=== PATIENT | male | born 1960 | race Caucasian/White ===

== ENCOUNTER 2020-07-28 09:58 | Day surgery (SDC) | payer BC ==
--- NOTE | 2020-07-27 09:22 | PCM.PREANE ---
Preanesthetic Assessment - Procedure Proposed Procedure: Right video arthroscopy with partial medial menisectomy - Anesthesia/Transfusion/Family Hx Anesthesia History: Prior Anesthesia Without Reaction Family History of Anesthesia Reaction: No Transfusion History: No Prior Transfusion(s) Intubation History: Unknown - Review of Systems General: No Symptoms Pulmonary: No Symptoms (ETOH: rarely) Cardiovascular: No Symptoms Gastrointestinal: No Symptoms Neurological: No Symptoms (spinal cerebellar ataxia/vertigo), Gait Disturbance Other: Reports: None - Physical Assessment NPO Status Date: 07/27/20 NPO Status Time: 20:30 Vital Signs: HR:81 Sat:98% Temp:97.3 Resp:16 B/P:139/76 Height: 1.8 m Weight: 76 kg ASA Class: 2 Mental Status: Alert & Oriented x3 Airway Class: Mallampati = 2 Dentition: Reports: Normal Dentition, Caries Thyro-Mental Finger Breadths: 3 Mouth Opening Finger Breadths: 3 ROM/Head Extension: Full Lungs: Clear to Auscultation, Normal Respiratory Effort Cardiovascular: Regular Rate, Regular Rhythm, No Murmurs - Lab Values: Laboratory Last Values MRSA (PCR) Negative 07/15/20 10:32 All labs reviewed and noted and within acceptable ranges to proceed with scheduled procedure. - Imaging/EKG Impressions: EKG: SR rate=65 - Allergies Allergies/Adverse Reactions: Allergies Allergy/AdvReac Type Severity Reaction Status Date / Time No Known Allergies Allergy Verified 07/27/20 12:46 - Anesthesia Plan Pre-Op Medication Ordered: None - Acknowledgements Anesthesia Type Planned: General Anesthesia Pt an Appropriate Candidate for the Planned Anesthesia: Yes Alternatives and Risks of Anesthesia Discussed w Pt/Guardian: Yes Pt/Guardian Understands and Agrees with Anesthesia Plan: Yes PreAnesthesia Questionnaire Other Neuro History: spinal cerebralur ataxia - HOME MEDS Home Medications: Home Meds Dutasteride [Avodart] 0.5 mg PO DAILY 12/12/14 [History] Tamsulosin [Flomax] 0.4 mg PO DAILY 07/27/20 [History] traMADol [Ultram] 50 mg PO Q8H PRN 07/27/20 [History] Acetaminophen/HYDROcodone [[place] 325-5 MG] 1 - 2 tab PO Q6H PRN #10 tablet 07/28/20 [Rx] Aspirin [Aspirin EC] 325 mg PO DAILY #30 tablet. 07/28/20 [Rx] - CURRENT (IN HOUSE) MEDS Current Meds: Current Medications Lactated Ringer's (Ringers, Lactated) 1,000 mls @ 125 mls/hr IV ASDIRECTED MARCIO Stop: 07/28/20 23:00 Lidocaine/Sodium Bicarbonate (Lidocaine 1%/Sod Bicarbonate In Ns 8.4% 1 Ml Syringe) 0.25 ml IDERM ONETIME PRN PRN Reason: Prior to IV Start Stop: 07/28/20 18:00 Sodium Chloride (Sodium Chloride 0.9% 10 Ml Syringe) 10 ml FLUSH ASDIRECTED PRN PRN Reason: Keep Vein Open Stop: 07/28/20 18:00
[~2020-07-28 09:58] MED LIST: Dexamethasone 4 MG/ML 5 ML MDV ONE; EPINEPHrine 1 MG/ML SDV SCH; HYDROmorphone 1 MG/ML Syringe ONE; Ketorolac 30 MG/ML SDV ONE; Lactated Ringers 1,000 ML IV SCH; Lactated Ringers 1,000 ML ONE; Lidocaine 1% 4 ML ONE; Lidocaine 1%/Sod Bicarbonate in NS 8.4% 1 ML Syringe IDERM PRN; Midazolam 1 MG/ML 2 ML SDV ONE; Ondansetron 4 MG/2 ML SDV ONE; Propofol 200 MG/20 ML SDV ONE; Sodium Chloride 0.9% 10 ML Syringe FLUSH PRN; ceFAZolin 1 GM Vial ONE; fentaNYL 250 MCG/5 ML SDV ONE
[2020-07-28] MEDS ORDERED: Bupivacaine 0.25% 10 ML SDV ONE (10:00)
[2020-07-28] MEDS ORDERED: ePHEDrine 50 MG/ML SDV ONE (11:01)
[2020-07-28] MEDS ORDERED: HYDROmorphone 0.5 MG/0.5 ML Syringe IVPUSH PRN (11:05)
[2020-07-28] MEDS ORDERED: fentaNYL 100 MCG/2 ML SDV IVPUSH PRN (11:05)
[2020-07-28] MEDS ORDERED: Ondansetron 4 MG/2 ML SDV IVPUSH PRN (11:05)
[2020-07-28] MEDS ORDERED: ePHEDrine 50 MG/ML SDV IVPUSH PRN (11:05)
[2020-07-28] MEDS ORDERED: diphenhydrAMINE 50 MG/ML SDV IVPUSH PRN (11:05)
--- NOTE | 2020-07-28 11:44 | PCM.POSTAN ---
POST ANESTHESIA ASSESSMENT - MENTAL STATUS Mental Status: Alert - VITAL SIGNS Vital Signs: Last Vital Signs Temp 97.6 07/28/20 1134 Pulse 75 07/28/20 11:34 Resp 13 07/28/20 11:34 BP 138/76 07/28/20 11:34 Pulse Ox 97 07/28/20 11:34 - RESPIRATORY Respiratory Status: Respiratory Rate WNL, Airway Patent, O2 Saturation Stable, Supplemental Oxygen - CARDIOVASCULAR CV Status: Pulse Rate WNL, Blood Pressure Stable - GASTROINTESTINAL GI Status: No Symptoms - POST OP HYDRATION Hydration Status: Adequate & Stable
--- NOTE | 2020-07-28 12:15 | PCM48HPAN ---
Post Anesthesia Note - EVALUATION WITHIN 48HRS OF ANESTHETIC Vital Signs in Normal Range: Yes Patient Participated in Evaluation: Yes Respiratory Function Stable: Yes Airway Patent: Yes Cardiovascular Function Stable: Yes Hydration Status Stable: Yes Pain Control Satisfactory: Yes Nausea and Vomiting Control Satisfactory: Yes Mental Status Recovered: Yes Vital Signs: Last Vital Signs Temp 36.3 C 07/28/20 10:15 Pulse 75 07/28/20 11:34 Resp 15 07/28/20 12:00 BP 124/78 07/28/20 12:00 Pulse Ox 97 07/28/20 12:09
[2020-07-28 12:57] VITALS: PULSE 78
[2020-07-28 13:05] VITALS: BP 135/84
--- NOTE | 2020-08-11 07:20 | PCM.OPNOTE ---
- General Post-Op/Procedure Note Date of Surgery/Procedure: 07/28/20 Operative Procedure(s): right knee video arthroscopy with chondroplasty medial femoral condyle and patellofemoral joint with partial synovectomy Pre Op Diagnosis: right knee osteoarthritis with medial meniscus tear Post-Op Diagnosis: right knee osteoarthritis with synovitis Anesthesia Technique: General LMA, Local Primary Surgeon: Jakob Mata Anesthesia Provider: Katelin Prince Time Lock Expert: Rose Mary Valerio in mLs: 5 Complications: None Condition: Good
--- NOTE | 2020-08-11 10:31 | OR ---
DATE OF OPERATION: 07/28/2020 SURGEON: Jakob Mata MD OPERATION PERFORMED: Right knee video arthroscopy with chondroplasty, medial femoral condyle and patellofemoral joint with partial synovectomy. PREOPERATIVE DIAGNOSIS: Right knee osteoarthritis with medial meniscus tear. POSTOPERATIVE DIAGNOSIS: Right knee osteoarthritis with synovitis. ANESTHESIA: Technique: General LMA with local. ANESTHESIA PROVIDER: Katelin Prince CRNA MANAGER OF FINANCE: Rose Mary Valerio PA-C. ESTIMATED BLOOD LOSS: Less than 5 mL. COMPLICATIONS: None. CONDITION: Stable. DESCRIPTION OF PROCEDURE: The patient was identified in the preoperative holding area. Proper site was marked and identified by the surgeon. The patient was taken back to the operating theater where after adequate anesthesia, the patient's left lower extremity was placed in a well leg long. Right lower extremity had a nonsterile tourniquet applied. It was then placed in a C-clamp long. Foot of the bed was then lowered. Right lower extremity was then sterilely prepped and draped in the usual sterile fashion. OR time-out was performed. Patient received 2 g IV Ancef. Right lower extremity was exsanguinated. Tourniquet was insufflated to 250 mmHg. Standard anterolateral portal incision was made. Scope trocar was introduced. 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 The patient was also noted to have a large amount of synovitis. Attention was turned to the medial compartment. Anteromedial portal was created with the use of a spinal needle. At this time, a probe was introduced. The patient just had fraying of the medial meniscus, stenosis, and a significant medial meniscal tear. He was noted to have grade 3/4 chondromalacia of the medial compartment. A chondroplasty was performed of the medial femoral condyle. At this time, ACL was found to be intact in the notch. Lateral compartment showed minor grade 2 chondromalacia changes. At this time, a chondroplasty was performed of the patella and the trochlea and a partial synovectomy was performed of the synovitis. The patient at this time had excess saline drained from the knee. 0.25% Marcaine was injected around the portal incision. 3-0 nylon was used for closure of the portals. The patient was placed in a sterile soft dressing and sent to PACU in stable condition. MMODAL /[id number]
== END 2020-07-28 13:30 | disposition home or self-care (01) ==
LOC: JD.SDS 09:58
PROVIDERS: ATTEND Orthopaedic Surgery
DX: M65.861 Other synovitis and tenosynovitis, right lower leg (principal); M17.11 Unilateral primary osteoarthritis, right knee; S83.241A Other tear of medial meniscus, current injury, right knee, initial encounter; M94.261 Chondromalacia, right knee; Z88.8 Allergy status to other drugs, medicaments and biological substances; Z91.02 Food additives allergy status; Z79.899 Other long term (current) drug therapy; Z98.890 Other specified postprocedural states; G62.9 Polyneuropathy, unspecified
CPT/HCPCS: 29875; 87641; J0171; J0690; J1100; J1170; J1885; J2250; J2370; J2405; J2704; J3010; J3490; J7120; 01400

== ENCOUNTER 2021-11-05 14:38 | Emergency (ER) | payer BC ==
[2021-11-05 16:18] VITALS: BP 135/81; PULSE 72
[2021-11-05] MEDS ORDERED: Ondansetron 4 MG Tab.DIS PO ONE (16:24)
[2021-11-05] MEDS ORDERED: Diazepam 2 MG Tab PO ONE (17:49)
[2021-11-05] MEDS ORDERED: Sodium Chloride 0.9% 10 ML Syringe FLUSH PRN (19:52)
[2021-11-05] MEDS ORDERED: Sodium Chloride 0.9% 1,000 ML IV ONE (19:53)
[2021-11-05 22:15] LABS: CORONAVIRUS COVID-19 NAA POSITIVE (NEGATIVE)
[2021-11-05] MEDS ORDERED: Ondansetron 4 MG/2 ML SDV IVPUSH ONE (22:55)
== END 2021-11-05 23:40 | disposition left against medical advice (07) ==
LOC: JD.ED 14:38
DX: U07.1 COVID-19 (principal); R42 Dizziness and giddiness; Z79.899 Other long term (current) drug therapy
CPT/HCPCS: 0240U; 36415; 70450; 80053; 83735; 85025; 85610; 96360; 96361; 99285; A9270; J3490; J7030; 99284